=== PATIENT | female | born 1980 | race Caucasian/White ===

== ENCOUNTER 2020-03-31 11:48 | Emergency (ER) | payer MEDICAID ==
[~2020-03-31] VITALS: Ht 160 cm; Wt 90.7 kg
[2020-03-31] MEDS ORDERED: ZOFRAN ODT4 MG PO (12:55)
[2020-03-31] MEDS ORDERED: OMEPRAZOLE 20 M20 M1 PO (12:55)
[2020-03-31] MEDS ORDERED: NABUMETONE 750750 M1 PO (12:56)
[2020-03-31 13:36] VITALS: BP 110/80
== END 2020-03-31 13:37 | disposition home or self-care (01) ==
LOC: M.ERS 11:48
DX: S80.12XA Contusion of left lower leg, initial encounter (principal); S80.11XA Contusion of right lower leg, initial encounter; K21.9 Gastro-esophageal reflux disease without esophagitis; Z76.0 Encounter for issue of repeat prescription; Z88.1 Allergy status to other antibiotic agents; Z88.5 Allergy status to narcotic agent; Z88.0 Allergy status to penicillin; W19.XXXA Unspecified fall, initial encounter; Y93.89 Activity, other specified; Y92.89 Other specified places as the place of occurrence of the external cause; Y99.8 Other external cause status

== ENCOUNTER 2020-05-08 18:52 | Emergency (ER) | payer MEDICARE, MEDICAID ==
[~2020-05-08] VITALS: Ht 160 cm; Wt 88.5 kg
[~2020-05-08 18:52] MED LIST: NABUMETONE 750750 M1 PO; OMEPRAZOLE 20 M20 M1 PO; ZOFRAN ODT4 MG PO
[2020-05-08] MEDS ORDERED: TRAMADOL 50 MG50 MG PO (20:52)
[2020-05-08 21:08] VITALS: BP 115/67
== END 2020-05-08 21:08 | disposition home or self-care (01) ==
LOC: M.ERS 18:52
DX: S40.022A Contusion of left upper arm, initial encounter (principal); K21.9 Gastro-esophageal reflux disease without esophagitis; Z88.1 Allergy status to other antibiotic agents; Z88.5 Allergy status to narcotic agent; Z88.0 Allergy status to penicillin; Z79.899 Other long term (current) drug therapy; Z87.820 Personal history of traumatic brain injury; W01.0XXA Fall on same level from slipping, tripping and stumbling without subsequent striking against object, initial encounter; Y93.E1 Activity, personal bathing and showering; Y92.89 Other specified places as the place of occurrence of the external cause; Y99.9 Unspecified external cause status

== ENCOUNTER 2020-07-14 13:26 | Emergency (ER) | payer MEDICARE, MEDICAID ==
[~2020-07-14] VITALS: Ht 160 cm; Wt 90.3 kg
[~2020-07-14 13:26] MED LIST changes: +TRAMADOL 50 MG50 MG PO
[2020-07-14 13:54] LABS: URINE BILIRUBIN NEGATIVE (Negative); URINE BLOOD 3+ (Negative); URINE CLARITY SL CLOUDY; URINE COLOR YELLOW; URINE GLUCOSE-RANDOM NEGATIVE (Negative); URINE KETONES NEGATIVE (Negative); URINE LEUKOCYTES-REFLEX 2+ (Negative); URINE NITRITE-REFLEX NEGATIVE (Negative); URINE PROTEIN NEGATIVE (Negative); URINE SPECIFIC GRAVITY <= 1.005 (1.005-1.030); URINE UROBILINOGEN 0.2 E.U./dl (0.2-1.0)
[2020-07-14 14:03] LABS: SQUAMOUS >10 Many /LPF (0-3)
[2020-07-14 14:04] LABS: CASTS None Seen /LPF (None Seen); CRYSTALS None Seen /LPF (None Seen)
[2020-07-14 14:05] LABS: URINE RBC 0-2 Rare /HPF (0-2)
[2020-07-14 14:07] LABS: ABSOLUTE BASOPHILS 0.1 thou/uL (0.0-0.2); ABSOLUTE EOSINOPHILS 0.1 thou/uL (0.0-0.7); ABSOLUTE LYMPHOCYTES 2.2 thou/uL (0.8-5.3); ABSOLUTE MONOCYTES 0.6 thou/uL (0.0-1.2); ABSOLUTE NEUTROPHILS 4.6 thou/uL (1.6-8.1); BASOPHILS 0.8 %; HEMATOCRIT 36.7 % (37.0-47.0); HEMOGLOBIN 12.2 gm/dL (12.0-15.0); LYMPHOCYTES 29.4 %; MCH 28.4 pg (26.0-34.0); MCHC 33.2 g/dL (28.0-37.0); MCV 85.5 fL (80.0-100.0); MPV 6.7 fl. (7.2-11.1); NUCLEATED RBCS 0 /100WBC; PLATELET COUNT* 361 thou/uL (150-400); POLYS 60.8 %; RBC 4.29 mil/uL (4.20-5.00); RDW-CV 14.4 % (10.5-14.5); WBC 7.5 thou/uL (4.0-11.0)
[2020-07-14 14:16] LABS: CALCIUM 8.9 mg/dL (8.5-10.1); CREATININE 0.7 mg/dL (0.6-1.3); POTASSIUM 3.5 mmol/L (3.5-5.1)
[2020-07-14 14:21] LABS: ALBUMIN 3.2 g/dL (3.4-5.0); TOTAL BILIRUBIN 0.2 mg/dL (<0.1-1.0); TOTAL PROTEIN 7.3 g/dL (6.4-8.2)
[2020-07-14] MEDS ORDERED: BACTRIM DS TAB1 EACH PO (15:25)
[2020-07-14] MEDS ORDERED: FLAGYL500 M1 PO (15:25)
[2020-07-14] MEDS ORDERED: EMVERM100 MG PO (15:30)
[2020-07-14 15:40] VITALS: BP 132/91
== END 2020-07-14 15:40 | disposition home or self-care (01) ==
LOC: M.ERS 13:26
PROVIDERS: Physician Assistant
DX: N88.8 Other specified noninflammatory disorders of cervix uteri (principal); N76.0 Acute vaginitis; B96.89 Other specified bacterial agents as the cause of diseases classified elsewhere; N39.0 Urinary tract infection, site not specified; L29.9 Pruritus, unspecified; K21.9 Gastro-esophageal reflux disease without esophagitis; Z87.820 Personal history of traumatic brain injury; Z88.1 Allergy status to other antibiotic agents; Z88.5 Allergy status to narcotic agent; Z88.0 Allergy status to penicillin